=== PATIENT | male | born 1955 | race Caucasian/White ===

== ENCOUNTER → 2018-06-15 10:29 | Outpatient (CLI) | payer OTHER, SELFPAY ==
--- NOTE | 2018-06-15 10:35 | RAD_ITS ---
STUDY: X-RAY - ORBITS REASON FOR EXAM: Male, 62 years old. This study is being performed as a clearance examination for exclusion of orbital metal, prior to the performance of an MRI examination. TECHNIQUE: 2 view(s) of the orbits were obtained. COMPARISON: None. FINDINGS: Normal bilateral orbits without a metallic orbital foreign body. Normal visualized facial bones. Normal paranasal sinuses. The soft tissue structures are unremarkable. RAD/Orbits for Foreign Body IMPRESSION: No demonstrated metallic orbital foreign body. The patient is cleared for an MRI examination. Electronically Signed: Reinier Damon MD at 11:03 EST Tel , Service support ,
--- NOTE | 2018-06-15 11:16 | MRI_ITS ---
STUDY: MRI CERVICAL SPINE WITHOUT CONTRAST REASON FOR EXAM: Male, 62 years old. Neck pain and left radiculopathy TECHNIQUE: Standardized fat and water weighted pulse sequences were obtained in the sagittal and axial planes. COMPARISON: None FINDINGS: Normal foramen magnum and brainstem-cervical cord junction. Normal craniovertebral junction. Normal anterior atlantoaxial articulation. Normal odontoid process. Normal cervical lordosis. Normal vertebral bodies and posterior osseous elements. C2-3: Normal endplates. Normal disc height, signal and morphology. Normal central canal and intervertebral neural foramina. C3-4: Normal endplates. Normal disc height, signal and moderate size left posterolateral/foraminal disc/osteophyte protrusion.. Normal central canal. Moderate left neuroforaminal stenosis secondary to disc and bony hypertrophy. Minor right neural foraminal encroachment secondary to bony hypertrophy C4-5: Normal endplates. Narrowed disc height, signal and morphology. Normal central canal . Moderate to severe left neuroforaminal stenosis secondary to bony hypertrophy and minor right neural foraminal encroachment due to bony hypertrophy C5-6: Normal endplates. Narrowed disc space and mild endplate spurring.. Normal central canal. Severe bilateral neuroforaminal stenosis secondary to bony hypertrophy C6-7: Normal endplates. Normal disc height, signal and morphology. Normal central canal and intervertebral neural foramina. C7-T1: Normal endplates. Normal disc height, signal and morphology. Normal central canal and intervertebral neural foramina. Normal cervical cord. Normal visualized soft tissue structures. MRI/Spine Cervical (Routine) IMPRESSION: No evidence for acute fracture or other significant bony pathology. Moderate spondylosis and multilevel spinal stenosis secondary to bony hypertrophy Findings as above Electronically Signed: Willie Johns MD at 19:45 EST , Service support ,
== END ==
PROVIDERS: Family Provider Family Medicine; PCP Family Medicine
DX: M99.01 Segmental and somatic dysfunction of cervical region (principal); M54.12 Radiculopathy, cervical region
CPT/HCPCS: 70030; 72141

== ENCOUNTER → 2022-12-17 | Outpatient (CLI) | payer MEDICARE, OTHER, SELFPAY ==
--- NOTE | 2022-12-17 06:34 | MRI_ITS ---
INDICATION: RADICULOPATHY, LBP, RT LEG PAIN EXAMINATION: MRI - MR Spine Lumbar W/O Contrast TECHNIQUE: Multiplanar and multisequence MR images of the lumbar spine. IV Contrast Dosage and Agent: None. COMPARISON: None. FINDINGS: VERTEBRAE: Vertebral body heights are preserved. No compression fracture. 2 small rounded circumscribed foci of T1 and T2 hyperintensity are seen within the L4 vertebral body, consistent with benign cavernous hemangiomas of bone. VERTEBRAL ALIGNMENT: No spondylolisthesis. There is preservation of the normal lumbar lordosis. CORD: Normal position and signal intensity of the conus medullaris. The nerve roots within the cauda equina do not appear abnormally thickened and clumped. LOWER THORACIC DISCS: T11/12 and T12/L1 discs are degenerated with mild endplate degenerative changes and marginal osteophytes. No disc extrusion, annular bulging or neural foraminal encroachment at these 2 levels. L1/L2: Disc degeneration/dehydration with mild endplate degenerative changes and marginal osteophytes. Normal spinal canal, lateral recesses and neuroforamina. L2/L3: Disc degeneration/dehydration with mild endplate degenerative changes and marginal osteophytes.. Mild to moderate narrowing of the inferior neural foramina by broad-based annular bulging which is symmetric, along with facet hypertrophy. No thecal sac stenosis. L3/L4: Disc degeneration/dehydration with mild endplate degenerative changes and marginal osteophytes. Mild-moderate narrowing of the inferior neural foramina by annular bulging and facet hypertrophy. No thecal sac stenosis. L4/L5: Disc degeneration/dehydration with mild endplate degenerative changes. No significant annular bulging or neural foraminal encroachment. L5/S1: Disc space narrowing was extensive endplate degenerative changes and marginal osteophytes, greater on the left. Mild broad-based annular bulging; narrowing of the inferior neural foramina bilaterally by the annular bulge and surrounding posterolateral osteophytes. No thecal sac stenosis. Lumbar facet arthritis is present, greatest at the L3/4 level. SOFT TISSUES: The psoas muscles are symmetric. Abdominal aorta is normal in caliber. No paraspinal soft tissue swelling. MRI/Spine Lumbar (Routine) IMPRESSION: Lower thoracic and lumbar degenerative disc disease, greatest at L5/S1 level. Lumbar facet arthritis. Broad-based annular bulging at the L2/3, L3/4 and L5/S1 levels. No disc extrusion or thecal sac stenosis. Electronically Signed: Ronnie Levi MD at 23:11 EDT ,
== END | disposition home or self-care (01) ==
DX: M54.16 Radiculopathy, lumbar region (principal)
CPT/HCPCS: 72148

== ENCOUNTER → 2024-03-12 | Outpatient (CLI) | payer SELFPAY ==
--- NOTE | 2024-03-12 06:36 | MRI_ITS ---
STUDY: MRI RIGHT KNEE REASON FOR EXAM: Male, 68 years old. Chronic pain. TECHNIQUE: Standardized fat and water weighted pulse sequences were obtained in all 3 orthogonal planes. COMPARISON: None. FINDINGS: There is horizontal tearing of the anterior horn of the medial meniscus and degenerative free edge tearing of the body and posterior horn of the medial meniscus. There is degenerative arthrosis of the medial femorotibial compartment with joint space narrowing, marginal osteophyte formation, high-grade chondromalacia, and areas of subchondral marrow edema. Normal medial collateral ligamentous complex (MCL). Normal distal semimembranosus, gracilis and semitendinosus tendons. Normal lateral meniscus. Normal hyaline cartilage of the lateral femorotibial compartment. Normal lateral femoral condyle and tibial plateau. Normal proximal tibiofibular articulation. Normal lateral collateral (fibular) ligament. Normal popliteus tendon. Normal biceps femoris tendon. Normal anterior cruciate ligament (ACL). Normal posterior cruciate ligament (PCL). There is low-grade to moderate grade chondromalacia along the lateral patellar facet.. Congruent patellofemoral articulation. Normal medial and lateral patellar retinaculum. Normal quadriceps tendon. Normal patellar tendon. Normal Hoffa''s fat pad. There is a moderate volume joint effusion. There is no popliteal cyst. There is mild subcutaneous soft tissue edema along the anterior aspect of the knee. There is no acute fracture. MRI/Lower Ext Joint Only (Routine) IMPRESSION: Horizontal tearing of the anterior horn of the medial meniscus and degenerative free edge tearing of the body and posterior horn of the medial meniscus. 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 Moderate joint effusion. Mild subcutaneous soft tissue edema along the anterior aspect of the knee. Electronically Signed: Zack Van MD at 8:15 EDT ,
== END | disposition home or self-care (01) ==
LOC: MRI 06:14
DX: M25.561 Pain in right knee (principal)
CPT/HCPCS: 73721